=== PATIENT | female | born 1950 | race American Indian/Alaskan Native ===

== ENCOUNTER 2021-10-14 14:58 | Emergency (ER) | payer MEDICARE, OTHER ==
--- NOTE | 2021-10-14 15:33 | Emergency Department Report ---
ED CPR HPI - General Chief Complaint: Cardiac Arrest/CPR Stated Complaint: CARDIAC ARREST Time Seen by Provider: 10/14/21 15:32 Source: family, EMS, RN notes reviewed Limitations: Altered Mental Status, Physical Limitation - History of Present Illness Initial Comments: The patient was evaluated in the emergency department for symptoms described in the history of present illness. He/she was evaluated in the context of the global COVID-19 pandemic, which necessitated consideration that the patient might be at risk for infection with the virus that causes COVID-19. [facility] protocols and algorithms that pertain to the evaluation of patients at risk for COVID-19 are in a state of rapid change based on information released by regulatory bodies including the CDC and federal and state organizations. These policies and algorithms were followed during the patient's care in the emergency department. Please note that these policies, procedures and recommendations changed on a rapid basis. This is a 71-year-old female, who was brought to the hospital by emergency medical services, with an EMS articulated complaint of out of hospital cardiac arrest. Patient arrives receiving [id number] ventilation with a GCS of 3. As per verbal report from EMS, patient collapsed in front of family members. EMS does not believe that family member started CPR. EMS reports that upon their arrival, the patient's is in pulseless electrical activity, without shockable rhythm. EMS unable to intubate. A supraglottic Alireza airway is placed. Patient received CPR, and appropriate ACLS interventions and medications. EMS reports that patient is pulseless for approximately 10 to 15 minutes. Upon arrival to this emergency room, patient has a GCS of 3. She has return of spontaneous circulation. Shortly after ER arrival, patient again loses pulses. She does not have a shockable rhythm. Standard ACLS interventions are performed. Patient received chest compressions, and multiple rounds of appropriate medications. Unfortunately, in spite of a prolonged resuscitation, pulses cannot be obtained. Resuscitative efforts are therefore terminated, as pulses are not appreciated, bedside [id number] transthoracic ultrasound shows no coordinated ventricular activity, and Doppler interrogation of the femoral artery and carotid arteries does not demonstrate any pulsatility, or appreciable waveform Patient's family members are subsequently informed. Complaint: stopped breathing -: minute(s) Place: home Bystander CPR Performed: No Initial Findings in the Field: other rhythm ROSC in the Field: Yes Treatments Prior to Arrival: other airway device, chest compressions, defribrillated shocks #, epinephrine mgs # ED Review of Systems ROS: Stated complaint: CARDIAC ARREST Other details as noted in HPI Comment: Unobtainable due to pts medical conditions ED Physical Exam - General General appearance: obtunded, obese - Head Head exam: Present: atraumatic, normocephalic - Eye Eye exam: Present: other (Pupils do not react to light) - ENT ENT exam: Present: other (Copious secretions noted in the mouth) - Neck Neck exam: Present: normal inspection. Absent: tenderness, meningismus - Respiratory Respiratory exam: Present: other (Patient is not breathing). Absent: stridor - Cardiovascular Cardiovascular Exam: Present: other (The patient does not have a pulse) - GI/Abdominal GI/Abdominal exam: Present: soft. Absent: distended, tenderness, guarding, rebound, rigid, pulsatile mass - Extremities Exam Extremities exam: Present: normal inspection - Back Exam Back exam: Present: normal inspection. Absent: tenderness - Neurological Exam Neurological exam: Present: altered, other (Nonverbal, GCS of 3) - Psychiatric Psychiatric exam: Present: other (The patient is nonverbal) - Skin Skin exam: Present: warm, dry, intact, normal color. Absent: rash - Intubation Time Out Performed: No (Emergency situation) Laryngoscope: fiberoptic video scope Size: 4 Assist Device Used: fiberoptic device ET Tube Size: 7.5 Additional Comments: Direct and video laryngoscopy performed. Copious secretions noted in the mouth. Trachea and vocal cords visualized, and able to advance the endotracheal tube through the trachea. However, distal to the cords, there is a physical block/impediment, that prevents further insertion of bougie catheter, as well as endotracheal tube. Given concern for distal airway obstruction, cricothyrotomy kit brought to the bedside, with plan to perform emergency airway cricothyrotomy. However, pulses are lost, and not able to be obtained, and therefore, efforts are terminated. Critical care attestation.: If time is entered above; I have spent that time in minutes in the direct care of this critically ill patient, excluding procedure time. ED Disposition Clinical Impression: Cardiac arrest Disposition: 20 Is pt being admited?: No Does the pt Need Aspirin: No Condition: Undetermined Referrals: PRIMARY CARE,MD [Primary Care Provider] - 3-5 Days Forms: Accompanied Note
[2021-10-14] MEDS ORDERED: ETOMIDATE 20 MG/10 ML INJ IV ONE (17:46)
[2021-10-14] MEDS ORDERED: ROCURONIUM 50 MG/5 ML INJ IV ONE (17:47)
[2021-10-14] MEDS ORDERED: CALCIUM CHLORIDE 1,000 MG/10 ML SYRINGE IV ONE (17:50)
[2021-10-14] MEDS ORDERED: EPINEPHrine 1 MG/10 ML SYRINGE ONE (17:50)
[2021-10-14] MEDS ORDERED: SODIUM BICARB 8.4% 50 MEQ/50 ML SYRINGE IV ONE (17:50)
== END 2021-10-14 21:30 ==
LOC: ED 14:58
DX: I46.9 Cardiac arrest, cause unspecified (principal)
CPT/HCPCS: 31500; 82962; 92950; 99285; J0171; J3490